=== PATIENT | female | born 1975 | race American Indian/Alaskan Native ===

== ENCOUNTER 2019-08-08 19:48 | Emergency (ER) | payer SELFPAY ==
--- NOTE | 2019-08-08 20:44 | Event Note ---
ED Screening Note Date of service: 08/08/19 Time: 20:40 ED Screening Note: This is a 44 y.o. F. that presents to the ER with RLE swelling and pain. Patient states Bee diagnosed her with a DVT to right groin to below right knee 07/21/2019. Currently taking eliquis. Reports worsening swelling and pain. This initial assessment/diagnostic orders/clinical plan/treatment(s) is/are subject to change based on patients health status, clinical progression and re- assessment by fellow clinical providers in the ED. Further treatment and workup at subsequent clinical providers discretion. Patient/guardian urged not to elope from the ED as their condition may be serious if not clinically assessed and managed. Initial orders include: Labs
[2019-08-08 21:17] LABS: Basophils # (Auto) 0.1 K/mm3 (0.0-0.1); Basophils % (Auto) 1.2 % (0.0-1.8); Eosinophils # (Auto) 0.1 K/mm3 (0.0-0.4); Eosinophils % (Auto) 1.4 % (0.0-4.3); Hemoglobin 9.6 gm/dl (10.1-14.3); Lymphocytes # (Auto) 2.6 K/mm3 (1.2-5.4); Lymphocytes % (Auto) 42.1 % (13.4-35.0); Mean Corpuscular HGB Conc 33 % (30-34); Mean Corpuscular Volume 84 fl (79-97); Monocytes # (Auto) 0.6 K/mm3 (0.0-0.8); Monocytes % (Auto) 9.9 % (0.0-7.3); Platelet Count 504 K/mm3 (140-440); Red Blood Count 3.44 M/mm3 (3.65-5.03)
[2019-08-08 21:29] LABS: INR 1.47 (0.87-1.13)
[2019-08-08 21:30] LABS: Partial Thromboplastin Time 43.9 Sec. (24.2-36.6)
[2019-08-08 21:41] LABS: Alanine Aminotransferase 17 units/L (7-56); Albumin 2.3 g/dL (3.9-5); BUN/Creatinine Ratio 13; Blood Urea Nitrogen 9 mg/dL (7-17); Calcium 7.6 mg/dL (8.4-10.2); Hemolysis Index 1
--- NOTE | 2019-08-08 21:44 | Emergency Department Report ---
ED General Adult HPI - General Chief complaint: Extremity Injury, Lower Stated complaint: NUMBNESS IN RIGHT LEG, BLOOD CLOT, SWELLING Time Seen by Provider: 08/08/19 20:39 Source: patient Mode of arrival: Ambulatory Limitations: No Limitations - History of Present Illness Initial comments: 44 y.o. female with a recent diagnosis of a DVT presents with complaint of pain and swelling to right leg. Patient was diagnosed with a DVT on 07/21 and was placed on Eliquis. Patient states she was initially diagnosed at [facility]. Patient then states she went to team unknown and as she continued to have swelling and was told again that she had a blood clot. Patient states he then went to [facility] and had a repeat ultrasound and was also told she had a clot in the same region. Patient denies any chest pain or shortness of breath. Patient states she went to a pain clinic and again was confirmed that she had a DVT. Patient states she's continued to have swelling and was started on furosemide therapy. Patient has no bleeding from any orifice at the current time. Severity scale (0 -10): 0 - Related Data Previous Rx's Medication Instructions Recorded Last Taken Type oxyCODONE /ACETAMINOPHEN [Percocet 1 tab PO Q6HR PRN #20 tablet 08/08/19 Unknown Rx 325] Allergies Allergy/AdvReac Type Severity Reaction Status Date / Time NSAIDS (Non-Steroidal Allergy Shortness Verified 08/08/19 20:16 Anti-Inflamma of Breath ED Review of Systems ROS: Stated complaint: NUMBNESS IN RIGHT LEG, BLOOD CLOT, SWELLING Other details as noted in HPI Constitutional: denies: chills, fever Eyes: denies: eye pain, eye discharge, vision change ENT: denies: ear pain, throat pain Respiratory: denies: cough, shortness of breath, wheezing Cardiovascular: denies: chest pain, palpitations Endocrine: no symptoms reported Gastrointestinal: denies: abdominal pain, nausea, diarrhea Genitourinary: denies: urgency, dysuria, discharge Musculoskeletal: other (extremity pain) Skin: denies: rash, lesions Neurological: denies: headache, weakness, paresthesias Psychiatric: denies: anxiety, depression Hematological/Lymphatic: denies: easy bleeding, easy bruising ED Past Medical Hx - Past Medical History Previous Medical History?: No Hx Hypertension: Yes (Resolved since weight loss) Hx Diabetes: Yes (Resolved sinceweight loss) - Surgical History Past Surgical History?: Yes Additional Surgical History: Bowel obstructions - August 2018. DS - weight loss surgery - August 2018 - Social History Smoking Status: Never Smoker Substance Use Type: None - Medications Home Medications: Home Medications Medication Instructions Recorded Confirmed Last Taken Type oxyCODONE /ACETAMINOPHEN [Percocet 1 tab PO Q6HR PRN #20 tablet 08/08/19 Unknown Rx 5/325] ED Physical Exam - General Limitations: No Limitations General appearance: alert, in no apparent distress - Head Head exam: Present: atraumatic, normocephalic - Eye Eye exam: Present: normal appearance - ENT ENT exam: Present: mucous membranes moist - Neck Neck exam: Present: normal inspection - Respiratory Respiratory exam: Present: normal lung sounds bilaterally. Absent: respiratory distress - Cardiovascular Cardiovascular Exam: Present: regular rate, normal rhythm. Absent: systolic murmur, diastolic murmur, rubs, gallop - GI/Abdominal GI/Abdominal exam: Present: soft, normal bowel sounds - Extremities Exam Extremities exam: Present: normal inspection, other (swelling noted in right lower extremity; no erythema present; 2+ dorsalis pedis pulse present; compartments soft) - Back Exam Back exam: Present: normal inspection - Neurological Exam Neurological exam: Present: alert, oriented X3 - Psychiatric Psychiatric exam: Present: normal affect, normal mood - Skin Skin exam: Present: warm, dry, intact, normal color. Absent: rash ED Course Vital Signs 08/08/19 08/08/19 20:31 21:19 Temperature 98.9 F 98.5 F Pulse Rate 97 H 74 Respiratory 18 15 Rate Blood Pressure 126/60 Blood Pressure 105/56 [Right] O2 Sat by Pulse 100 100 Oximetry ED Medical Decision Making - Lab Data Result diagrams: 08/08/19 20:47 08/08/19 20:47 - Medical Decision Making Patient has a normal oxygen saturation. Patient has no chest pain or shortness of breath. Patient is currently on treatment with Eliquis therapy. Patient to be discharged to follow-up with her PCP. - Differential Diagnosis DVT; Dehydration; ANemia Critical care attestation.: If time is entered above; I have spent that time in minutes in the direct care of this critically ill patient, excluding procedure time. ED Disposition Clinical Impression: DVT (deep venous thrombosis) Disposition: DC-01 TO HOME OR SELFCARE Is pt being admited?: No Does the pt Need Aspirin: No Condition: Stable Instructions: Deep Venous Thrombosis (ED) Prescriptions: oxyCODONE /ACETAMINOPHEN [Percocet 5/325] 1 tab PO Q6HR PRN #20 tablet PRN Reason: Pain Referrals: OLE WELLER MD [Staff Physician] - 3-5 Days Time of Disposition: 22:26 Print Language: WELSH
[2019-08-08 23:09] VITALS: BP 106/64
== END 2019-08-08 23:10 | disposition home or self-care (01) ==
LOC: ED 19:48
DX: I82.401 Acute embolism and thrombosis of unspecified deep veins of right lower extremity (principal); I10 Essential (primary) hypertension; E11.9 Type 2 diabetes mellitus without complications; Z98.890 Other specified postprocedural states; Z88.8 Allergy status to other drugs, medicaments and biological substances
CPT/HCPCS: 36415; 80053; 85025; 85610; 85730

== ENCOUNTER 2019-11-13 15:20 | Emergency (ER) | payer OTHER ==
[2019-11-13 15:38] VITALS: BP 113/62
--- NOTE | 2019-11-13 15:39 | Event Note ---
ED Screening Note Date of service: 11/13/19 Time: 15:36 ED Screening Note: c/o SOB and numbness/swelling in right leg x today discharge from [facility] for extensive right leg DVT 10/27/19 This initial assessment/diagnostic orders/clinical plan/treatment(s) is/are subject to change based on patients health status, clinical progression and re- assessment by fellow clinical providers in the ED. Further treatment and workup at subsequent clinical providers discretion. Patient/guardian urged not to elope from the ED as their condition may be serious if not clinically assessed and managed. Initial orders include: CTA US Labs
[2019-11-13 16:43] LABS: Basophils % (Auto) 0.2 % (0.0-1.8); Hematocrit 31.5 % (30.3-42.9); Hemoglobin 10.1 gm/dl (10.1-14.3); Lymphocytes # (Auto) 0.8 K/mm3 (1.2-5.4); Lymphocytes % (Auto) 8.5 % (13.4-35.0); Mean Corpuscular HGB Conc 32 % (30-34); Mean Corpuscular Volume 86 fl (79-97); Monocytes # (Auto) 0.6 K/mm3 (0.0-0.8); Monocytes % (Auto) 5.9 % (0.0-7.3); Red Blood Count 3.65 M/mm3 (3.65-5.03); Red Cell Distribution Width 15.5 % (13.2-15.2)
--- NOTE | 2019-11-13 17:14 | Vascular Lab Report ---
DUPLEX DOPPLER LOWER EXTREMITY VEINS, RIGHT INDICATION / CLINICAL INFORMATION: numbness, swelling, recent extensive DVT. TECHNIQUE: Duplex doppler imaging was performed through the veins of the right lower extremity using venous comp ression and other maneuvers. COMPARISON: None available. FINDINGS: COMMON FEMORAL VEIN: Negative. 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 Mid to distal femoral vein are ne gative POPLITEAL VEIN: Negative. CALF VEINS: Negative. ADDITIONAL FINDINGS: Right knee effusion IMPRESSION: 1. 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 Right knee effusion Signer Name: Shubham Tomas MD Signed: 11/13/2019 5:09 PM Workstation Name: [id number]
[2019-11-13 17:50] LABS: Alanine Aminotransferase 45 units/L (7-56); Albumin 2.1 g/dL (3.9-5); BUN/Creatinine Ratio 27; Blood Urea Nitrogen 16 mg/dL (7-17); Hemolysis Index 25
[2019-11-13 18:09] LABS: Platelet Count 311 K/mm3 (140-440)
== END 2019-11-13 18:06 | disposition left against medical advice (07) ==
LOC: ED 15:20
DX: R06.00 Dyspnea, unspecified (principal); Z53.21 Procedure and treatment not carried out due to patient leaving prior to being seen by health care provider
CPT/HCPCS: 36415; 80053; 84484; 84703; 85025